=== PATIENT | female | born 1950 | race Caucasian/White ===

== ENCOUNTER → 2018-09-14 | Outpatient (CLI) | payer OTHER, BC | LOC: FIMAGING 10:51 | PROVIDERS: ATTEND Internal Medicine Geriatric Medicine | DX: I82.491 Acute embolism and thrombosis of other specified deep vein of right lower extremity (principal) | CPT/HCPCS: 85301-90; 85303-90; 85306-90; 86147-90 ==

== ENCOUNTER → 2019-02-13 | Outpatient (CLI) | payer OTHER, BC | LOC: CIMAGING 11:54 ==